=== PATIENT | female | born 1945 | race African-American/Black ===

== ENCOUNTER 2023-08-06 09:49 | Emergency (ER) | payer MEDICAID ==
[~2023-08-06] VITALS: Ht 172.7 cm; Wt 79.0 kg
[2023-08-06 09:52] VITALS: TEMP 98.1; O2SAT 98
[2023-08-06] MEDS ORDERED: ACETAMINOPHEN 325MG TABLET PO ONE (10:15)
[2023-08-06 10:53] VITALS: BP 148/98; PULSE 79; RESP 17
[2023-08-06 11:48] LABS: BASOPHILS % 0.6 % (0.0-2.0); EOSINOPHILS % 2.6 % (0.0-5.0); HEMATOCRIT. 33.7 % (36.0-48.0); HEMOGLOBIN. 10.9 g/dL (12.0-16.0); LYMPHOCYTES % 29.3 % (20.0-50.0); MEAN CORPUSCULAR HEMOGLOBIN 26.4 pg (28.0-32.0); MEAN CORPUSCULAR HGB CONC 32.3 g/dL (31.0-37.0); MEAN CORPUSCULAR VOLUME 81.8 fL (81.0-99.0); MEAN PLATELET VOLUME 8.1 fl (7.4-10.4); MONOCYTES % 10.3 % (2.0-8.0); NEUTROPHILS % 57.2 % (40.0-76.0); PLATELET 247 x1000/uL (130-400); RED BLOOD CELL COUNT 4.12 mill/uL (4.2-5.4); RED CELL DISTRIBUTION WIDTH 13.8 % (11.6-14.6); WHITE BLOOD COUNT 4.5 x1000/uL (4.5-11.0)
[2023-08-06 11:50] LABS: ALANINE AMINOTRANSFERASE 11 IU/L (10-49); ALBUMIN 4.1 g/dL (3.2-4.8); ASPARTATE AMINOTRANSFERASE 21 IU/L (<34); BILIRUBIN TOTAL 0.5 mg/dL (0.1-1.0); CALCIUM 9.4 mg/dL (8.7-10.4); CARBON DIOXIDE 25 mEq/L (21-32); CHLORIDE 109 mEq/L (98-107); CREATININE 0.5 mg/dL (0.6-1.0); GLUCOSE 104 mg/dL (70-105); POTASSIUM 3.7 mEq/L (3.5-5.1); PROTEIN TOTAL 6.9 g/dL (6.0-8.3); SODIUM 142 mEq/L (136-145); TROPONIN I HIGH SENSITIVITY 6 ng/L (3.0-34); UREA NITROGEN BLOOD 9 mg/dL (9-23)
[2023-08-06] MEDS ORDERED: TOPUD PO (12:23)
== END 2023-08-06 13:06 | disposition home or self-care (01) ==
LOC: ER 09:49
DX: R00.2 Palpitations (principal); M25.50 Pain in unspecified joint; E11.9 Type 2 diabetes mellitus without complications; I10 Essential (primary) hypertension
CPT/HCPCS: 36415; 71045; 80053; 83880; 84484; 85025; 93005; 99285

== ENCOUNTER 2024-07-19 16:37 | Emergency (ER) | payer MEDICAID ==
[~2024-07-19] VITALS: Ht 167.6 cm; Wt 55.0 kg
[~2024-07-19 16:37] MED LIST: TOPUD PO
[2024-07-19 16:50] VITALS: BP 119/68; PULSE 57; RESP 16; TEMP 98.4; O2SAT 99
[2024-07-19] MEDS: ACETAMINOPHEN 325MG TABLET PO STA (17:14)
[2024-07-19 18:01] LABS: BASOPHILS % 1.1 % (0.0-2.0); EOSINOPHILS % 3.1 % (0.0-5.0); HEMATOCRIT. 32.2 % (36.0-48.0); HEMOGLOBIN. 10.4 g/dL (12.0-16.0); LYMPHOCYTES % 36.6 % (20.0-50.0); MEAN CORPUSCULAR HEMOGLOBIN 26.5 pg (28.0-32.0); MEAN CORPUSCULAR HGB CONC 32.4 g/dL (31.0-37.0); MEAN CORPUSCULAR VOLUME 81.9 fL (81.0-99.0); MEAN PLATELET VOLUME 7.5 fl (7.4-10.4); MONOCYTES % 11.3 % (2.0-8.0); NEUTROPHILS % 47.9 % (40.0-76.0); PLATELET 337 x1000/uL (130-400); RED BLOOD CELL COUNT 3.93 mill/uL (4.2-5.4); RED CELL DISTRIBUTION WIDTH 14.9 % (11.6-14.6); WHITE BLOOD COUNT 4.1 x1000/uL (4.5-11.0)
[2024-07-19 18:10] LABS: CHLORIDE 109 mEq/L (98-107); POTASSIUM 4.4 mEq/L (3.5-5.1); PROTHROMBIN TIME 11.2 sec (9.6-11.0); SODIUM 141 mEq/L (136-145)
[2024-07-19 18:11] LABS: CALCIUM 9.5 mg/dL (8.7-10.4); CARBON DIOXIDE 24 mEq/L (21-32)
[2024-07-19 18:16] LABS: CREATININE 0.9 mg/dL (0.6-1.0); GLUCOSE 112 mg/dL (70-105)
[2024-07-19 18:17] LABS: UREA NITROGEN BLOOD 18 mg/dL (9-23)
[2024-07-19 18:18] LABS: ALANINE AMINOTRANSFERASE < 7 IU/L (10-49); ALBUMIN 3.9 g/dL (3.2-4.8); ASPARTATE AMINOTRANSFERASE 14 IU/L (<34); TROPONIN I HIGH SENSITIVITY < 4 ng/L (3.0-34)
[2024-07-19 18:19] LABS: BILIRUBIN TOTAL 0.4 mg/dL (0.1-1.0); PROTEIN TOTAL 7.4 g/dL (6.0-8.3)
[2024-07-19 18:21] LABS: BILIRUBIN DIRECT < 0.1 mg/dL (<=3.0)
[2024-07-20] MEDS ORDERED: FAMO-135 MT (00:26)
[2024-07-20] MEDS ORDERED: SENN-215 MT (00:27)
== END 2024-07-20 01:05 | disposition home or self-care (01) ==
LOC: ER 16:37
DX: R10.9 Unspecified abdominal pain (principal); E11.9 Type 2 diabetes mellitus without complications; I10 Essential (primary) hypertension
CPT/HCPCS: 36415; 71045; 74176; 80048; 80076; 84484; 85025; 93005; 99285